=== PATIENT | female | born 1990 | race American Indian/Alaskan Native ===

== ENCOUNTER 2018-12-11 14:21 | Observation (INO) | payer MEDICAID ==
[2018-12-11 16:03] LABS: Bilirubin,Urine NEG (Negative); Blood,Urine NEG (Negative); Color,Urine Yellow (Yellow); Mucus,Urine FEW /HPF; Protein,Urine <15 mg/dL mg/dL (Negative); Urobilinogen,Urine < 2.0 mg/dL (<2.0)
[2018-12-11] MEDS ORDERED: LACTATED RINGERS 1,000 ML ONE ×2 (16:15→16:27)
[2018-12-11] MEDS ORDERED: LACTATED RINGERS 1,000 ML IV ONE (16:22)
[2018-12-11] MEDS ORDERED: AMPICILLIN/NS 2 GM/100 ML 2 GM/100 ML BAG IV ONE (17:31)
[2018-12-11] MEDS ORDERED: CELESTONE SOLUSPAN IM ONE (17:31)
[2018-12-11] MEDS ORDERED: MAGNESIUM SULFATE 4GM/100ML 4 GM/100 ML BAG IV ONE (17:31)
[2018-12-11] MEDS ORDERED: LACTATED RINGERS 1,000 ML IV SCH (18:00)
--- NOTE | 2018-12-11 18:59 | History and Physical Report ---
History of Present Illness Date of examination: 12/11/18 Date of admission: 12/11/18 17:34 Chief complaint: contractions History of present illness: at 30+2 wkspresented in triage with contractions. Past History - Obstetrical History : 2 Medications and Allergies Allergies Allergy/AdvReac Type Severity Reaction Status Date / Time No Known Allergies Allergy Verified 12/11/18 14:26 Home Medications Medication Instructions Recorded Confirmed Last Taken Type Vit,Cristian 74/Iron/Folic 1 each PO DAILY 12/11/18 12/11/18 Unknown History [ Low Iron Tablet] Active Meds: Active Medications Ampicillin Sodium (Ampicillin/Ns 1 Gm/50 Ml) 1 gm in 50 mls @ 100 mls/hr IV Q4HR LOS; Protocol Magnesium Sulfate (Magnesium Sulfate 40gm/1000ml) 40 gm in 1,000 mls @ 50 mls/hr IV DIRECT LOS Lactated Ringer's (Lactated Ringers) 1,000 mls @ 75 mls/hr IV DIRECT LOS Review of Systems All systems: negative - Vital Signs Vital signs: Vital Signs Resp 18 12/11/18 14:30 Temp Pulse Resp BP Pulse Ox 88 18 101/59 95 12/11/18 18:53 12/11/18 14:30 12/11/18 18:34 12/11/18 18:53 - Physical Exam Breasts: Positive: deferred Cardiovascular: Regular rate Lungs: Positive: Clear to auscultation Abdomen: Positive: normal appearance, distention - Obstetrical Uterine Contraction Monitor Mode: External Uterine Contraction Pattern: Irregular Results All other labs normal. Assessment and Plan - Patient Problems (1) 30 weeks gestation of Current Visit: Yes Status: Acute (2) uterine contractions Current Visit: Yes Status: Acute Plan to address problem: For Observation GBS, Urine cultures Betamethasone x 2 doses IV ampicillin IV MgSo4 NICU & MFM consults.
[2018-12-11] MEDS: MAGNESIUM SULFATE 40GM/1000ML 40 GM/1,000 ML BAG IV SCH (19:04)
[2018-12-11 21:19] LABS: Amphetamine Screen,Urine PRESUMPTIVE NEGATIVE; Benzodiazepines Screen,Urine PRESUMPTIVE NEGATIVE; Cocaine Screen,Urine PRESUMPTIVE NEGATIVE; Methadone Screen,Urine PRESUMPTIVE NEGATIVE; Opiate Screen,Urine PRESUMPTIVE NEGATIVE
[2018-12-11 21:32] LABS: Cannabinoid Screen,Urine PRESUMPTIVE POSITIVE
[2018-12-11] MEDS: AMPICILLIN/NS 1 GM/50 ML 1 GM/50 ML BAG IV SCH (23:01)
[2018-12-11 23:48] LABS: Hematocrit 32.5 % (30.3-42.9); Hemoglobin 11.3 gm/dl (10.1-14.3); Mean Corpuscular HGB Conc 35 % (30-34); Mean Corpuscular Volume 85 fl (79-97); Platelet Count 159 K/mm3 (140-440); Red Blood Count 3.83 M/mm3 (3.65-5.03); Red Cell Distribution Width 12.3 % (13.2-15.2)
[2018-12-12 00:04] LABS: Alanine Aminotransferase 8 units/L (7-56); Albumin 3.2 g/dL (3.9-5); BUN/Creatinine Ratio 13; Blood Urea Nitrogen 8 mg/dL (7-17); Calcium 8.1 mg/dL (8.4-10.2); Hemolysis Index 1
[2018-12-12] MEDS: AMPICILLIN/NS 1 GM/50 ML 1 GM/50 ML BAG IV SCH ×5 (03:28→18:36)
[2018-12-12] MEDS ORDERED: ZOFRAN IV PRN (08:35)
--- NOTE | 2018-12-12 09:02 | Progress Note ---
Assessment and Plan - Patient Problems (1) 30 weeks gestation of Current Visit: Yes Status: Acute (2) uterine contractions Current Visit: Yes Status: Acute Plan to address problem: For Observation GBS, Urine cultures Betamethasone x 2 doses IV ampicillin IV MgSo4 NICU & MFM consults. Discussed this patient with MFM Dr. Longoria and he recommended completing the bet amethasone and to d/c MgSo4 after 24 hrs and if patient continues being stable to allow her to go home. Subjective - Subjective Date of service: 12/12/18 Principal diagnosis: Interval history: at 30+3 wkspresented in triage with contractions. Patient reports: movement normal, no new complaints, no loss of fluid, no vaginal bleeding Objective - Vital Signs Vital Signs: Vital Signs - 12hr 12/11/18 12/11/18 12/11/18 20:58 21:03 21:05 Temperature Pulse Rate 81 68 72 Respiratory Rate Blood Pressure 114/67 O2 Sat by Pulse 99 99 Oximetry 12/11/18 12/11/18 12/11/18 21:08 21:13 21:18 Temperature Pulse Rate 80 85 84 Respiratory Rate Blood Pressure O2 Sat by Pulse 98 99 98 Oximetry 12/11/18 12/11/18 12/11/18 21:23 21:24 21:28 Temperature Pulse Rate 77 79 78 Respiratory Rate Blood Pressure O2 Sat by Pulse 95 93 98 Oximetry 12/11/18 12/11/18 12/11/18 21:33 21:35 21:38 Temperature Pulse Rate 76 71 76 Respiratory Rate Blood Pressure 109/71 O2 Sat by Pulse 99 97 Oximetry 12/11/18 12/11/18 12/11/18 21:43 21:48 21:53 Temperature Pulse Rate 87 84 89 Respiratory Rate Blood Pressure O2 Sat by Pulse 96 96 97 Oximetry 12/11/18 12/11/18 12/11/18 21:58 22:03 22:04 Temperature Pulse Rate 75 77 84 Respiratory Rate Blood Pressure 112/68 O2 Sat by Pulse 97 97 Oximetry 12/11/18 12/11/18 12/11/18 22:05 22:08 22:13 Temperature Pulse Rate 96 H 70 69 Respiratory Rate Blood Pressure O2 Sat by Pulse 91 98 97 Oximetry 12/11/18 12/11/18 12/11/18 22:18 22:23 22:28 Temperature Pulse Rate 69 78 73 Respiratory Rate Blood Pressure O2 Sat by Pulse 97 98 99 Oximetry 12/11/18 12/11/18 12/11/18 22:34 22:35 22:37 Temperature Pulse Rate 71 73 83 Respiratory Rate Blood Pressure 111/59 O2 Sat by Pulse 100 94 Oximetry 12/11/18 12/11/18 12/11/18 22:39 22:44 22:49 Temperature Pulse Rate 72 74 76 Respiratory Rate Blood Pressure O2 Sat by Pulse 97 98 94 Oximetry 12/11/18 12/11/18 12/11/18 22:54 22:59 23:04 Temperature Pulse Rate 76 75 71 Respiratory Rate Blood Pressure 99/58 O2 Sat by Pulse 95 98 97 Oximetry 12/11/18 12/11/18 12/11/18 23:09 23:12 23:14 Temperature Pulse Rate 71 82 73 Respiratory Rate Blood Pressure O2 Sat by Pulse 98 94 96 Oximetry 12/11/18 12/11/18 12/11/18 23:19 23:24 23:29 Temperature Pulse Rate 78 84 84 Respiratory Rate Blood Pressure O2 Sat by Pulse 97 96 95 Oximetry 12/11/18 12/11/18 12/11/18 23:34 23:36 23:39 Temperature Pulse Rate 77 79 74 Respiratory Rate Blood Pressure 106/63 O2 Sat by Pulse 98 96 Oximetry 12/11/18 12/11/18 12/11/18 23:43 23:44 23:49 Temperature Pulse Rate 77 75 83 Respiratory Rate Blood Pressure O2 Sat by Pulse 94 95 97 Oximetry 12/11/18 12/11/18 12/12/18 23:54 23:59 00:04 Temperature Pulse Rate 77 76 75 Respiratory Rate Blood Pressure O2 Sat by Pulse 100 100 100 Oximetry 12/12/18 12/12/18 12/12/18 00:05 00:09 00:14 Temperature Pulse Rate 74 76 78 Respiratory Rate Blood Pressure 110/69 O2 Sat by Pulse 100 99 Oximetry 12/12/18 12/12/18 12/12/18 00:19 00:24 00:29 Temperature Pulse Rate 77 76 81 Respiratory Rate Blood Pressure O2 Sat by Pulse 99 100 99 Oximetry 12/12/18 12/12/18 12/12/18 00:34 00:39 00:57 Temperature Pulse Rate 81 86 78 Respiratory Rate Blood Pressure 106/67 O2 Sat by Pulse 100 100 99 Oximetry 12/12/18 12/12/18 12/12/18 01:02 01:06 01:07 Temperature Pulse Rate 77 70 71 Respiratory Rate Blood Pressure 102/63 O2 Sat by Pulse 100 99 Oximetry 12/12/18 12/12/18 12/12/18 01:12 02:04 02:35 Temperature Pulse Rate 74 78 80 Respiratory Rate Blood Pressure 93/50 92/54 O2 Sat by Pulse 100 Oximetry 12/12/18 12/12/18 12/12/18 03:04 03:37 04:05 Temperature Pulse Rate 75 71 68 Respiratory Rate Blood Pressure 90/55 100/63 89/54 O2 Sat by Pulse Oximetry 12/12/18 12/12/18 12/12/18 04:08 04:35 05:04 Temperature 98.4 F Pulse Rate 72 75 Respiratory 16 Rate Blood Pressure 91/55 90/54 O2 Sat by Pulse Oximetry 12/12/18 12/12/18 12/12/18 05:35 06:04 06:36 Temperature Pulse Rate 77 72 71 Respiratory Rate Blood Pressure 93/54 85/49 91/51 O2 Sat by Pulse Oximetry 12/12/18 12/12/18 12/12/18 07:04 07:34 08:05 Temperature Pulse Rate 71 74 72 Respiratory Rate Blood Pressure 87/54 84/48 87/53 O2 Sat by Pulse Oximetry 12/12/18 08:34 Temperature Pulse Rate 78 Respiratory Rate Blood Pressure 104/71 O2 Sat by Pulse Oximetry - Exam Breasts: deferred Cardiovascular: Regular rate Lungs: Clear to auscultation Abdomen: Present: normal appearance, soft, distention Vulva: both: normal (Examine with BETHANY Najera) Uterus: Present: normal, fundal height above umbilicus FHR comments: Normal for gestational age. Uterine Contraction Monitor Mode: External Cervical Dilatation: 1 Cervical Effacement Percentage: 70 Uterine Contraction Pattern: Irregular Uterine Contraction Intensity: Mild - Labs Labs: Abnormal Labs 12/11/18 12/11/18 12/12/18 23:13 23:13 00:09 MCHC 35 H RDW 12.3 L Creatinine 0.6 L Glucose 115 H Calcium 8.1 L Magnesium 5.10 H Total Protein 6.1 L Albumin 3.2 L 12/12/18 06:19 MCHC RDW Creatinine Glucose Calcium Magnesium 6.10 H Total Protein Albumin Laboratory Results - last 24 hr 12/11/18 12/11/18 12/11/18 20:42 23:13 23:13 WBC 5.7 RBC 3.83 Hgb 11.3 Hct 32.5 MCV 85 MCH 30 MCHC 35 H RDW 12.3 L Plt Count 159 Sodium 137 Potassium 4.2 Chloride 100.8 Carbon Dioxide 25 Anion Gap 15 BUN 8 Creatinine 0.6 L Estimated GFR > 60 BUN/Creatinine Ratio 13 Glucose 115 H Calcium 8.1 L Magnesium Total Bilirubin < 0.20 AST 12 ALT 8 Alkaline Phosphatase 86 Total Protein 6.1 L Albumin 3.2 L Albumin/Globulin Ratio 1.1 Urine Color Urine Turbidity Urine pH Ur Specific [place] Urine Protein Urine Glucose (UA) Urine Ketones Urine Blood Urine Nitrite Urine Bilirubin Urine Urobilinogen Ur Leukocyte Esterase Urine WBC (Auto) Urine RBC (Auto) U Epithel Cells (Auto) Urine Mucus Urine Opiates Screen Presumptive negative Urine Methadone Screen Presumptive negative Ur Barbiturates Screen Presumptive negative Ur Phencyclidine Scrn Presumptive negative Ur Amphetamines Screen Presumptive negative U Benzodiazepines Scrn Presumptive negative Urine Cocaine Screen Presumptive negative U Marijuana (THC) Screen Presumptive positive Drugs of Abuse Note Disclamer Blood Type Antibody Screen 12/11/18 12/11/18 12/12/18 23:14 Unknown 00:09 WBC RBC Hgb Hct MCV MCH MCHC RDW Plt Count Sodium Potassium Chloride Carbon Dioxide Anion Gap BUN Creatinine Estimated GFR BUN/Creatinine Ratio Glucose Calcium Magnesium 5.10 H Total Bilirubin AST ALT Alkaline Phosphatase Total Protein Albumin Albumin/Globulin Ratio Urine Color Yellow Urine Turbidity Clear Urine pH 7.0 Ur Specific [place] 1.012 Urine Protein <15 mg/dl Urine Glucose (UA) Neg Urine Ketones Neg Urine Blood Neg Urine Nitrite Neg Urine Bilirubin Neg Urine Urobilinogen < 2.0 Ur Leukocyte Esterase Neg Urine WBC (Auto) 1.0 Urine RBC (Auto) 4.0 U Epithel Cells (Auto) 5.0 Urine Mucus Few Urine Opiates Screen Urine Methadone Screen Ur Barbiturates Screen Ur Phencyclidine Scrn Ur Amphetamines Screen U Benzodiazepines Scrn Urine Cocaine Screen U Marijuana (THC) Screen Drugs of Abuse Note Blood Type AB POSITIVE Antibody Screen Negative 12/12/18 06:19 WBC RBC Hgb Hct MCV MCH MCHC RDW Plt Count Sodium Potassium Chloride Carbon Dioxide Anion Gap BUN Creatinine Estimated GFR BUN/Creatinine Ratio Glucose Calcium Magnesium 6.10 H Total Bilirubin AST ALT Alkaline Phosphatase Total Protein Albumin Albumin/Globulin Ratio Urine Color Urine Turbidity Urine pH Ur Specific [place] Urine Protein Urine Glucose (UA) Urine Ketones Urine Blood Urine Nitrite Urine Bilirubin Urine Urobilinogen Ur Leukocyte Esterase Urine WBC (Auto) Urine RBC (Auto) U Epithel Cells (Auto) Urine Mucus Urine Opiates Screen Urine Methadone Screen Ur Barbiturates Screen Ur Phencyclidine Scrn Ur Amphetamines Screen U Benzodiazepines Scrn Urine Cocaine Screen U Marijuana (THC) Screen Drugs of Abuse Note Blood Type Antibody Screen
--- NOTE | 2018-12-12 14:40 | Ultrasound Report ---
BIOPHYSICAL PROFILE: INDICATION: labor. COMPARISON: None similar at this institution. TECHNIQUE: Transabdominal ultrasound with Doppler interrogation. 2 - breathing movements 2 - movements 2 - posture and tone 2 - Qualitative amniotic fluid volume 8 - TOTAL SCORE OF POSSIBLE 8 Heart Rate (bpm) 126 CONCLUSION: Findings, as above.
[2018-12-12] MEDS: MAGNESIUM SULFATE 40GM/1000ML 40 GM/1,000 ML BAG IV SCH (16:56)
[2018-12-12] MEDS ORDERED: CELESTONE SOLUSPAN IM ONE (18:30)
[2018-12-12 18:56] VITALS: BP 99/57
== END 2018-12-12 20:10 | disposition home or self-care (01) ==
LOC: TRG 14:21 → LD 17:34 → TRG 17:34
PROVIDERS: ADMIT Obstetrics & Gynecology; ATTEND Obstetrics & Gynecology
DX: O62.9 Abnormality of forces of labor, unspecified (principal); Z3A.30 30 weeks gestation of pregnancy
CPT/HCPCS: 36415; 59025; 76819; 80053; 80307; 81001; 83735; 85027; 86592; 86850; 86900; 86901; 87086; 87116; 96365; 96366; 96368; 96372; 96375; G0378; J0290; J0702; J2405; J3475; J7120